=== PATIENT | male | born 1985 | race Caucasian/White ===

== ENCOUNTER 2017-04-05 09:51 | Emergency (ER) | payer OTHER ==
[~2017-04-05] VITALS: Ht 185.4 cm; Wt 90.7 kg
[~2017-04-05 09:51] MED LIST: ACULAR 3 ML3 M1 OP; AMOXICILLIN500 M3 PO; BACTRIM DS 8001 TA1 PO; BACTROBAN2% TP; CIPROFLOXACIN500 MG PO; CLARITIN10 MG PO; DIFLUCAN50 MG PO; DOXYCYCLINE100 M2 PO; FLAGYL500 MG PO; FLEXERIL5 MG PO; HYDROCODONE BIT1 T11 PO; KEFLEX500 MG PO; MEDROL DOSEPAK4 MG PO; MICONAZOLE2% TP; MOTRIN800 MG PO; NIACIN1 TAB; NKHM; Nizoral 2%15 GM T; TOBREX OPHTH S2.5 ML OPH; TRAMADOL HCL50 MG; TRAMADOL HCL50 MG PO; TRIMOX500 MG PO; VIBRA-TAB100 MG PO; ZANTAC150 MG PO; ZITHROMAX250 MG PO; ZOFRAN4 MG PO; [UNRECOGNIZED DRUG - REMARK]
[2017-04-05] MEDS ORDERED: CLINDAMYCIN150 MG PO (10:20)
[2017-04-05] MEDS ORDERED: IBU800 MG PO (10:20)
== END 2017-04-05 11:49 | disposition home or self-care (01) ==
LOC: ED 09:51
DX: K02.9 Dental caries, unspecified (principal)

== ENCOUNTER 2019-06-13 06:42 | Emergency (ER) | payer SELFPAY ==
[~2019-06-13] VITALS: Ht 185.4 cm; Wt 99.8 kg
[~2019-06-13 06:42] MED LIST changes: +CLINDAMYCIN150 MG PO; +IBU800 MG PO
[2019-06-13] MEDS ORDERED: ZITHROMAX250 MG PO (08:09)
== END 2019-06-13 08:05 | disposition home or self-care (01) ==
LOC: ED 06:42
DX: J40 Bronchitis, not specified as acute or chronic (principal)

== ENCOUNTER 2020-01-09 10:37 | Emergency (ER) | payer SELFPAY ==
[~2020-01-09] VITALS: Ht 187.9 cm; Wt 99.8 kg
[2020-01-09] MEDS ORDERED: IBUPROFEN600 MG PO (13:12)
[2020-01-09] MEDS ORDERED: NORCO 5-325 TA1 EACH PO (13:53)
== END 2020-01-09 13:56 | disposition home or self-care (01) ==
LOC: ED 10:37
DX: S40.011A Contusion of right shoulder, initial encounter (principal); Z79.899 Other long term (current) drug therapy; W19.XXXA Unspecified fall, initial encounter; Y93.89 Activity, other specified; Y92.89 Other specified places as the place of occurrence of the external cause; Y99.8 Other external cause status

== ENCOUNTER 2020-02-06 00:44 | Emergency (ER) | payer SELFPAY ==
[~2020-02-06] VITALS: Wt 54.4 kg
[~2020-02-06 00:44] MED LIST changes: +IBUPROFEN600 MG PO; +NORCO 5-325 TA1 EACH PO
[2020-02-06] MEDS ORDERED: ERYTHROMYCIN OPH1 GM OPH (01:21)
[2020-02-06] MEDS ORDERED: ULTRAM50 MG PO (01:22)
== END 2020-02-06 01:52 | disposition home or self-care (01) ==
LOC: ED 00:44
DX: H16.133 Photokeratitis, bilateral (principal)

== ENCOUNTER 2020-09-16 23:08 | Emergency (ER) | payer OTHER ==
[~2020-09-16 23:08] MED LIST changes: +ERYTHROMYCIN OPH1 GM OPH; +ULTRAM50 MG PO
[2020-09-17] MEDS ORDERED: NAPHCON-A EYE D15 ML OP (00:59)
[2020-09-17] MEDS ORDERED: ERYTHROMYCIN OPH1 GM OPH (00:59)
== END 2020-09-17 00:56 | disposition home or self-care (01) ==
LOC: ED 23:08
DX: H16.133 Photokeratitis, bilateral (principal); F17.200 Nicotine dependence, unspecified, uncomplicated; Z79.899 Other long term (current) drug therapy; Z98.890 Other specified postprocedural states

== ENCOUNTER 2021-11-27 12:55 | Emergency (ER) | payer MEDICAID ==
[~2021-11-27] VITALS: Ht 187.9 cm; Wt 97.5 kg
[~2021-11-27 12:55] MED LIST changes: +NAPHCON-A EYE D15 ML OP
[2021-11-27] MEDS ORDERED: PENICILLIN VK500 MG PO (15:13)
[2021-11-27 15:29] LABS: BASO % 0.2 % (0.0-1.0); EOS # 0.1 10*3/uL (0.0-0.4); EOS % 0.8 % (1.0-4.0); HEMATOCRIT 41.2 % (42.0-52.0); LYMPH # 0.9 10*3/uL (1.3-4.4); LYMPH % 14.6 % (27.0-41.0); MEAN CELL VOLUME 88.8 fl (80.0-94.0); MEAN CORPUSCULAR HGB CONC 33.7 g/dl (33.0-37.0); MONO # 0.7 10*3/uL (0.1-1.0); MONO % 10.7 % (3.0-9.0); NEUT # 4.5 10*3/uL (2.3-7.9); NEUT % 73.4 % (47.0-73.0); PLATELET COUNT AUTOMATED 137 10*3/uL (130-400); RED BLOOD COUNT 4.64 10*6/uL (4.50-5.90); RED CELL DISTRI WIDTH 13.1 % (0-14.5); WHITE BLOOD COUNT 6.2 10*3/uL (4.8-10.8)
[2021-11-27 15:43] LABS: ALKALINE PHOSPHATASE 83 U/L (45-117); BUN 12 mg/dl (7-24); CHLORIDE 103 mmol/L (98-107); CREATININE 0.84 mg/dL (0.70-1.30); POTASSIUM 3.9 mmol/L (3.5-5.1); SGOT/AST 20 IU/L (3-35); SGPT/ALT 29 U/L (12-78); SODIUM 138 mmol/L (136-145); TOTAL PROTEIN 7.6 gm/dL (6.4-8.2)
[2021-11-27] MEDS ORDERED: IBU800 MG PO (18:29)
== END 2021-11-27 18:28 | disposition home or self-care (01) ==
LOC: ED 12:55
PROVIDERS: Nurse Practitioner Family
DX: K04.7 Periapical abscess without sinus (principal)

== ENCOUNTER 2023-07-15 16:29 | Emergency (ER) | payer OTHER, MEDICAID ==
[~2023-07-15] VITALS: Ht 177.8 cm; Wt 81.6 kg
[~2023-07-15 16:29] MED LIST changes: +PENICILLIN VK500 MG PO
[2023-07-15] MEDS ORDERED: Acetaminophen/Oxycodone 5 MG/325 MG TABLET PO ONE (16:35)
[2023-07-15] MEDS ORDERED: IBUPROFEN 800 MG TAB PO ONE (18:05)
[2023-07-15] MEDS ORDERED: MELOXICAM15 MG PO (18:55)
== END 2023-07-15 19:03 | disposition home or self-care (01) ==
LOC: ED 16:29
DX: S50.811A Abrasion of right forearm, initial encounter (principal); M25.512 Pain in left shoulder; M54.2 Cervicalgia; M79.641 Pain in right hand; V47.9XXA Unspecified car occupant injured in collision with fixed or stationary object in traffic accident, initial encounter; Y93.89 Activity, other specified; Y92.410 Unspecified street and highway as the place of occurrence of the external cause; Y99.8 Other external cause status